=== PATIENT | male | born 1990 | race Caucasian/White ===

== ENCOUNTER 2017-05-14 09:30 | Emergency (ER) | payer SELFPAY ==
[2017-05-14 09:43] VITALS: BP 136/79; PULSE 90; RESP 15; TEMP 98.1; O2SAT 100
--- NOTE | 2017-05-14 09:52 | ED PDOC ---
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 Patient stated he tripped and fell down on the floor at home. Patient stated he got up fast and he notice bleeding from his lip. Patient denies jules, neck pain, dizziness, loc, weakness, paresthesias, dizziness, or abnormal gait. Last tetanus is UKN. Denies pmh. Time/Duration: Prior to Arrival Context: Home Past Medical History - Provider Review Nursing Documentation Reviewed: Yes - Psychiatric Hx Psychophysiologic Disorder: No Hx Substance Use: No Family/Social History - Physician Review Nursing Documentation Reviewed: Yes Family/Social History: Other (noncontributory) Smoking Status: Heavy Smoker > 10 Cigarettes Daily Hx Alcohol Use: No Hx Substance Use: No Allergies/Home Meds Allergies/Adverse Reactions: Allergies No Known Allergies Allergy (Verified 05/14/17 09:38) Home Medications: Home Meds Medication Instructions Recorded Confirmed No Known Home Med 05/14/17 05/14/17 Review of Systems - Review of Systems Constitutional: Normal. absent: Fatigue, Weight Change, Fevers, Night Sweats Eyes: Normal ENT: Normal Respiratory: Normal. absent: SOB, Cough, Sputum, Wheezing Cardiovascular: Normal. absent: Chest Pain, Palpitations Gastrointestinal: Normal. absent: Abdominal Pain, Nausea, Vomiting Genitourinary Male: Normal Musculoskeletal: Normal Skin: Laceration (see hpi). absent: Rash Neurological: Normal. absent: Headache, Dizziness, Focal Weakness, Gait Changes , Speech Changes, Facial Droop, Disequilibrium, Seizure Endocrine: Normal Hemo/Lymphatic: Normal Psychiatric: Normal Physical Exam Vital Signs Temp Pulse Resp BP Pulse Ox 05/14/17 09:38 98.1 F 90 15 136/79 100 Temperature: Afebrile Blood Pressure: Normal Pulse: Regular Respiratory Rate: Normal Appearance: Positive for: Well-Appearing, Non-Toxic, Comfortable Pain Distress: None Mental Status: Positive for: Alert and Oriented X 3 - Systems Exam Head: Present: Normocephalic, Laceration (verticle facial laceration, approx. 2, 7 cm, located just inferior right inferior lip. [place] border intact.), Other (no raccoon sign. no lezama sign) Pupils: Present: PERRL, Other (no hyphema) Extroacular Muscles: Present: EOMI. No: Entrapment Conjunctiva: Present: Normal Ears: Present: Normal, NORMAL TM, Normal Canal. No: Erythema, TM Bulging, Fluid , TM Perf Mouth: Present: Moist Mucous Membranes Pharnyx: Present: Normal. No: ERYTHEMA, EXUDATE, TONSILS ENLARGED Nose (External): Present: Atraumatic Nose (Internal): Present: Normal Inspection Neck: Present: Normal Range of Motion. No: Meningeal Signs Respiratory/Chest: No: Tender to Palpation Back: Present: Normal Inspection. No: CVA Tenderness Upper Extremity: Present: Normal Inspection, Normal ROM, NORMAL PULSES, Neurovascularly Intact, Capillary Refill < 2s. No: Cyanosis, Edema Lower Extremity: Present: Normal Inspection, NORMAL PULSES, Normal ROM, Neurovascularly Intact, Capillary Refill < 2 s. No: Edema, CALF TENDERNESS Neurological: Present: GCS=15, CN II-XII Intact, Speech Normal, Motor Func Grossly Intact, Normal Sensory Function, Normal Cerebellar Funct, Gait Normal Skin: Present: Warm, Dry, Normal Color. No: Rashes Psychiatric: Present: Alert, Oriented x 3, Normal Insight, Normal Concentration Medical Decision Making ED Course and Treatment: 05/14/17 10:17 Patient was recommended to f/u pmd in 2-3 days for wound check. To keep wound clean and dry for 2 days. Sutures are absorbable, so they do not need to be removed. Patient refused tetanus because he thinks he is allergic to tetanus shot. Re-evaluation Time: 10:18 Reassessment Condition: Re-examined, Improved - Medication Orders Current Medication Orders: Discontinued Medications Tetanus/Reduced Diphtheria/Acell Pertussis (Boostrix Vaccine Inj) 0.5 ml IM .ONCE ONE Stop: 05/14/17 09:53 Last Admin: 05/14/17 10:05 Dose: - Procedure PROCEDURE NOTE (Text): 05/14/17 10:21 Procedure Laceration repair: Under sterile technique, wound was power irrigated with 60 cc of saline. Wound was approximated with 5-0 Monocryl, 4 sutures, interrupted, single layer. No complication, no blood loss. Patient tolerated procedure well Wound was located just inferior to inferior lip. No ilene border involvement. Disposition/Present on Arrival - Present on Arrival Any Indicators Present on Arrival: No History of DVT/PE: No History of Uncontrolled Diabetes: Yes Urinary Catheter: Yes History of Decub. Ulcer: Yes History Surgical Site Infection Following: None - Disposition Have Diagnosis and Disposition been Completed?: Yes Diagnosis: Facial laceration Disposition: HOME/ ROUTINE Disposition Time: 10:19 Patient Plan: Discharge Condition: GOOD Discharge Instructions (ExitCare): Facial Laceration (ED) Additional Instructions: Call private doctor for follow up and wound check visit in 2-3 days. keep wound clean and dry for 2 days, then clean wound with soap and water daily. Sutures are absorbable , so they do not need to be removed. return to emergency if wound becomes infected, redness, or swollen, or painful. Referrals: [facility] [Outside] - Follow up with primary [facility] [Outside] - Follow up with primary Forms: [facility] ([place]an)
[2017-05-14] MEDS ORDERED: Lidocaine 1% Inj (20ml) ONE (09:53)
[2017-05-14] MEDS: TDAP Vaccine 0.5 mL Syr IM ONE ×2 (10:00→10:05)
== END 2017-05-14 10:31 | disposition home or self-care (01) ==
LOC: MERGE 09:30 → ED 09:30
DX: S01.81XA Laceration without foreign body of other part of head, initial encounter (principal); W01.0XXA Fall on same level from slipping, tripping and stumbling without subsequent striking against object, initial encounter; Y92.009 Unspecified place in unspecified non-institutional (private) residence as the place of occurrence of the external cause; F17.210 Nicotine dependence, cigarettes, uncomplicated